=== PATIENT | male | born 1980 ===

== ENCOUNTER 2023-06-23 11:41 | Emergency (ER) | payer BC ==
[2023-06-23] MEDS ORDERED: Ondansetron 4 MG/2 ML SDV IVPUSH ONE (12:07)
[2023-06-23] MEDS ORDERED: Lactated Ringers 1,000 ML IV SCH (12:15)
[2023-06-23 12:22] LABS: BASOPHILS PERCENT AUTO 0.1 % (0.0-1.5); EOSINOPHILS PERCENT AUTO 0.1 % (0.0-7.0); HEMATOCRIT 43.8 % (38.0-50.0); HEMOGLOBIN 15.5 g/dL (13.0-17.0); LYMPHOCYTES ABSOLUTE AUTO 1.3 K/uL (0.6-2.4); LYMPHOCYTES PERCENT AUTO 19.5 % (16.0-40.0); MEAN CORPUSCULAR HEMOGLOBIN 30.9 pg (27.0-32.0); MEAN CORPUSCULAR HGB CONC 35.4 g/dL (31.0-37.0); MEAN CORPUSCULAR VOLUME 87.3 fL (80.0-98.0); MONOCYTES ABSOLUTE AUTO 0.4 K/uL (0.0-0.8); MONOCYTES PERCENT AUTO 5.5 % (0.0-15.0); NEUTROPHILS ABSOLUTE AUTO 5.1 K/uL (1.4-5.7); NEUTROPHILS PERCENT AUTO 74.8 % (48.0-80.0); NRBC ABSOLUTE 0 K/uL; PLATELET COUNT,PLT 225 K/uL (150-400); RED BLOOD CELL COUNT 5.02 M/uL (4.50-5.90); WHITE BLOOD CELL COUNT,WBC 6.88 K/uL (4.0-11.0)
[2023-06-23 12:57] LABS: A/G RATIO 1.2 (0.9-1.6); ALBUMIN 4.2 g/dL (3.4-5.0); BILIRUBIN TOTAL 0.6 mg/dL (0.2-1.0); CARBON DIOXIDE,CO2 26.3 mmol/L (21.0-32.0); CREATININE 0.9 mg/dL (0.8-1.3); EST CRCL DRUG DOSING (CG) 132.61 mL/min; MAGNESIUM 1.9 mg/dL (1.8-2.4); POTASSIUM,K 3.7 mmol/L (3.5-5.1); PROTEIN TOTAL,TP 7.6 g/dL (6.4-8.2)
[2023-06-23] MEDS ORDERED: Meclizine 25 MG Tab PO ONE (14:49)
== END 2023-06-23 16:28 | disposition home or self-care (01) ==
LOC: MW.ED 11:41
DX: R42 Dizziness and giddiness (principal); Z79.899 Other long term (current) drug therapy; Z88.2 Allergy status to sulfonamides; Z88.8 Allergy status to other drugs, medicaments and biological substances
CPT/HCPCS: 36415; 70551; 71045; 80053; 83735; 84484; 85025; 85379; 93005; 96361; 96374; 99284; A9270; J2405; J7120